=== PATIENT | male | born 1995 | race Two or more races ===

== ENCOUNTER 2019-02-22 21:19 | Emergency (ER) | payer OTHER ==
[~2019-02-22] VITALS: Ht 167.6 cm; Wt 66.2 kg
[2019-02-22 23:49] VITALS: BP 137/90
== END 2019-02-22 23:49 | disposition home or self-care (01) ==
LOC: ED 21:19
DX: S61.411A Laceration without foreign body of right hand, initial encounter (principal); W22.8XXA Striking against or struck by other objects, initial encounter; Y93.89 Activity, other specified; Y92.89 Other specified places as the place of occurrence of the external cause; Y99.8 Other external cause status
CPT/HCPCS: J2001; Q0092